=== PATIENT | female | born 1945 | race Caucasian/White ===

== ENCOUNTER → 2022-02-05 | Outpatient (CLI) | payer MEDICARE, OTHER, SELFPAY ==
[2022-02-05 11:02] LABS: Hematocrit 43.1 % (37-47); Hemoglobin 13.8 g/dL (12.0-15.0); Mean Corpuscular Hgb 29.7 pg (27.0-32.0); Mean Corpuscular Volume 92.7 fL (81-99); Platelet Count 159 K/mm3 (150-450); RBC Distribution Width CV 12.7 % (11.6-14.6); RBC Distribution Width SD 42.8 fl (35.1-43.9); Red Blood Count 4.65 M/mm3 (4.2-5.4); White Blood Count 6.1 K/mm3 (4.4-11.0)
[2022-02-05 11:28] LABS: Anion Gap 5 (5-15); BUN 21 mg/dL (7-18); BUN/Creat Ratio 25.9 RATIO (10-20); Calcium,Total 9.4 mg/dL (8.5-10.1); Chloride 108 mmol/L (98-107); Creatinine, Serum 0.81 mg/dL (0.55-1.02); EST Glomerular Filtration Rate 73 mL/min (>60); Est Glom Filt Rate - Afr Amer 88 mL/min (>60); Glucose 86 mg/dL (74-106); Potassium 4.1 mmol/L (3.5-5.1); Sodium Level 144 mmol/L (136-145)
== END | disposition home or self-care (01) ==
PROVIDERS: Referring Provider Physician Assistant; Visit Provider Physician Assistant
DX: Z01.810 Encounter for preprocedural cardiovascular examination (principal)
CPT/HCPCS: 36415; 80048; 85027

== ENCOUNTER → 2023-07-04 | Outpatient (CLI) | payer MEDICARE, OTHER, SELFPAY ==
--- NOTE | 2023-07-04 14:10 | CT_ITS ---
CT RIGHT LOWER EXTREMITY WITH 3-D IMAGING CLINICAL INDICATION: Unilateral primary osteoarthritis, right knee. TECHNIQUE: Axial CT images of the right lower extremity was performed without IV contrast material. Coronal and sagittal reformats were provided. RADIATION DOSAGE (If Supplied By Facility): CTDIvol = ( 18.76 ) mGy, DLP = ( 1128.29 ) mGycm COMPARISON: No relevant prior comparison study available FINDINGS: Bones: There is mild degenerative arthrosis of the right hip joint with tiny marginal osteophyte formation. There is mild pubic symphysis arthrosis. There is severe degenerative arthrosis of the medial femorotibial compartment of the right knee with joint space narrowing, small marginal osteophyte formation, and subchondral sclerosis/cyst formation on both sides of the joint. There is minimal degenerative arthrosis of the patellofemoral compartment of the right knee. There is a tiny posterior calcaneal tuberosity spur. Osseous structures are intact without evidence of fracture or dislocation. No lytic or blastic osseous masses. Soft Tissues: There is a small right knee joint effusion. The deep soft tissue structures are unremarkable. The superficial soft tissues are unremarkable without evidence of edema, hematoma, or foreign body. CT/Extremity Lower without Contra IMPRESSION: Severe degenerative arthrosis of the medial femorotibial compartment of the right knee. Minimal degenerative arthrosis of the patellofemoral compartment of the right knee. Small right knee joint effusion. Electronically Signed: Clemente Boyle MD at 15:08 EDT ,
== END | disposition home or self-care (01) ==
LOC: CT 14:04
PROVIDERS: Referring Provider Student in an Organized Health Care Education/Training Program; Visit Provider Student in an Organized Health Care Education/Training Program
DX: M17.11 Unilateral primary osteoarthritis, right knee (principal)
CPT/HCPCS: 73700

== ENCOUNTER 2023-07-24 05:26 | Day surgery (SDC) | payer MEDICARE, OTHER, SELFPAY ==
[2023-07-04 14:52] LABS: Absolute Lymphocyte Count 1.85 X10^3/uL (0.83-4.51); Basophil# 0.03 X10^3/uL; Basophil% 0.6 % (0-1); Eosinophil# 0.09 X10^3/uL; Eosinophils% 1.7 % (0-5); Hematocrit 40.4 % (37-47); Hemoglobin 13.3 g/dL (12.0-15.0); Lymphocyte # 1.85 X10^3/ul (0.83-4.51); Lymphocyte % 34.6 % (19-41); Mean Corp Hgb Conc 32.9 g/dL (32-36); Mean Corpuscular Hgb 28.7 pg (27.0-32.0); Mean Corpuscular Volume 87.3 fL (81-99); Mean Platelet Vol. 10.3 fl (6.2-12.0); Monocyte# 0.39 X10^3/uL; Monocyte% 7.3 % (0-10); NRBC Flagged by Analyzer 0 % (0-5); Neutrophil # 2.97 X10^3/uL (2.7-7.7); Neutrophil % 55.6 % (47-70); Platelet Count 196 K/mm3 (150-450); RBC Distribution Width CV 12.6 % (11.6-14.6); RBC Distribution Width SD 39.9 fl (35.1-43.9); Red Blood Count 4.63 M/mm3 (4.2-5.4); White Blood Count 5.3 K/mm3 (4.4-11.0)
[2023-07-04 15:43] LABS: Magnesium 2.2 mg/dL (1.6-2.6)
[2023-07-04 15:58] LABS: Albumin, Serum 3.7 g/dL (3.2-5.0); Anion Gap 6 (5-15); BUN 23 mg/dL (7-18); BUN/Creat Ratio 24.7 RATIO (10-20); Calcium,Total 9.1 mg/dL (8.5-10.1); Chloride 100 mmol/L (98-107); Creatinine, Serum 0.93 mg/dL (0.55-1.02); EST Glomerular Filtration Rate 62 mL/min (>60); Est Glom Filt Rate - Afr Amer 75 mL/min (>60); Glucose 116 mg/dL (74-106); Potassium 3.8 mmol/L (3.5-5.1); Sodium Level 135 mmol/L (136-145)
[2023-07-24] VITALS (9 sets, daily range): BP systolic 94–146; BP diastolic 42–92; PULSE 54–65; RESP 16; TEMP 36.2–36.8; O2SAT 66–100; BMI 27.6
[2023-07-24] MEDS: Magnesium 1 GM over 15 mins IV (06:02)
[2023-07-24] MEDS: Lactated Ringers 1,000 ML 999 ML IV ×2 (06:02→10:10)
[2023-07-24] MEDS: Celecoxib 200 MG Capsule 400 MG PO (06:04)
[2023-07-24] MEDS: Gabapentin 600 MG Tablet PO (06:04)
[2023-07-24] MEDS: Acetaminophen 500 MG Tablet 1000 MG PO ×2 (06:04→13:37)
[2023-07-24 07:04] LABS: Bedside Glucose 118 mg/dL (74-106)
--- NOTE | 2023-07-24 08:00 | KNEE_PTH ---
PATIENT: ANNA LIMA LOC: [facility] [place] U#:[id number] AGE/SX: 77/F ROOM: RE07/24/[address]: Dr. Grant Molina DO : 1945 BED: DIS: 07/24/2023 SPEC #: [id number] RECD: 07/24/23 10:11 STATUS: SHAWNEE REMery #: [id number] AASHISH: 07/24/23 08:[address]: Grant Molina DEPT: SURGICAL PATHOLOGY RECD BY: Johanne Hill ENTERED: 07/24/23 10:33 SP TYPE: TOTAL KNEE OTHR DR: Dr. George Aragon DO Tissues: Knee, NOS Procedures: Decalcification bone/plaque Surgery Specimen Level IV HEADER OPERATION: ERAS, total knee replacement robotic arm assist PRE-OP DIAGNOSIS: Grade 4 osteoarthritis right knee TISSUE SUBMITTED: Bone and soft tissue right knee MICROSCOPIC DIAGNOSIS Bone and tissue of right knee, total knee resection: Severe degenerative joint disease. Polarizable crystals consistent with pseudo gout. AM: 07/28/23 MICROSCOPIC DESCRIPTION Slides are reviewed. GROSS DESCRIPTION Received is one container designated bone and soft tissue right knee. The specimen consists of multiple fragments of rubio-yellow bone measuring in aggregate 9.0 x 8.5 x 2.5 cm. Also in the specimen container are multiple fragments of yellow-white soft tissue that consists of a piece of fibrocartilaginous tissue measuring in aggregate 5.5 x 1.0 x 0.8 cm. A number of bony fragments contain articular surfaces consistent with tibial plateau and femoral condyle and displaying prominent osteophyte formation, eburnation and bone erosion. Tub Tender sections are submitted in two cassettes as follows: 1 - soft tissue, 2 - bone after decalcification. / 07/24/23 TC:5 CPT: 80750, 08592
[2023-07-24] MEDS: Cefazolin 2 GM in 0.9% Normal Saline (100mL Bag) 100 ML IV (08:04)
[2023-07-24] MEDS: dexAMETHasone 10 MG/ML Vial IV (08:20)
[2023-07-24] MEDS: TXA 1000mg in NS100 100ml (IVPB at Incision) 660 MG IV (08:20)
[2023-07-24] MEDS: TXA 1000mg in NS100 100ml (IVPB at Closure) 660 MG IV (09:22)
[2023-07-24] MEDS: JPS (Morphine 10mg/ml) OPERA.SITE (09:28)
--- NOTE | 2023-07-24 10:58 | PCM.OPRPT ---
Report of Operation Date of Procedure: 07/24/23 Description of Surgical Findings:: Preoperative diagnosis: Right knee primary osteoarthritis Postoperative diagnosis: Right knee primary osteoarthritis Procedure: Robotic assisted right total knee arthroplasty Surgeon: Grant Molina DO Sales Operations: Faiza Kuhn PA-C Anesthesia: Spinal with sedation, adductor canal block Anesthesiologist: Dr. Kam Complications: None apparent Drains: None Estimated blood loss: 50 cc Urinary output: None recorded IV fluids: 600 cc crystalloid Specimens: Total knee resections Surgical implants: Consuelo triathlon cruciate retaining femoral #2, primary tibial baseplate #3, triathlon X3 tibial bearing insert CS 10 mm Indications: This is a 77-year-old female seen in the outpatient setting diagnosed with right knee osteoarthritis with significant varus deformity. She failed nonoperative management with intra-articular corticosteroid injections, activity modification, bracing, [id number] analgesics. X-rays revealed grade 4 medial compartment changes. I recommended a right total knee arthroplasty. The risk, benefits, alternatives to procedure reviewed with patient at length and he agreed to proceed. Risks included but were not limited to bleeding, infection, loss of life or limb, need for additional surgery, persistent pain, intraoperative or postoperative fracture, instability, loosening of components, wound complications, stiffness, neurovascular injury, DVT or PE. Patient expressed understanding these risks and wished to proceed with surgery. Informed consent was obtained in the outpatient setting. Description of procedure: Patient was identified in the preoperative holding area by name, medical record number, and date of . Informed set was confirmed with the patient. The operative knee was marked with a surgical marker. Spinal anesthetic was administered in the PACU by anesthesia staff. At time of her procedure, patient brought the operative suite and positioned in the supine position with all bony prominences well-padded. We then placed a well-padded pneumatic tourniquet on the right upper thigh. The right upper extremity was brought across patient's chest throughout the procedure. We then prepped and draped the right lower extremity in a normal, sterile orthopedic fashion. We performed a timeout with all parties in attendance in agreement with the side, site, operation be performed. No concerns were voiced and would like to proceed with surgery. 2 g Ancef was administered prior to the incision by anesthesia staff as well as 1 g IV TXA. First exsanguinated the left lower extremity with a Esmarch bandage. Tourniquet was inflated to 280 mmHg, which remained up for 55 minutes. Esmarch was removed. I planned a standard midline approach to the l right eft knee approximately 15 cm in length. Skin was sharply incised with a 10 blade scalpel developing full-thickness layers down to the retinaculum. Layers were developed identifying the VMO. I then planned a standard medial parapatellar arthrotomy performed in flexion. The anterior horn of the medial meniscus was released. Hoffa's fat pad was then released. I then everted the patella in extension and brought the knee into 90 degrees of flexion. The anterior horn of the lateral meniscus was then released. The ACL was split in its mid substance with a 10 blade. We then brought the knee back into extension. The patella was examined and demonstrated grade I chondromalacia. I elected to leave the patella [place] without resurfacing. I then placed pins in the metaphyseal distal femur medial to lateral for the Romel arrays. In similar fashion, I made a 2 cm incision approximately a handsbreadth distal to the tibial tubercle along the medial aspect of the tibia, drilling 2 bicortical pins for the tibial array. The knee was brought into flexion. The patella was subluxed laterally but not everted. Medial lateral retractors were placed. We then utilized the Grapeshot software to confirm our planned surgical procedure and oriented with the patient's osseous anatomy. All checks with the Grapeshot system were confirmed. Patient had a significant fixed varus deformity after performing stress examination utilizing the Grapeshot software. We elected to place the tibial baseplate in 2 degrees of varus to allow for appropriate balancing. Sawblade was then brought in. I first started with the tibial cut, ensuring protection of the MCL and patellar tendon. A tibial wafer was then excised. I then proceeded to make the posterior femoral, anterior, anterior chamfer cuts with the same blade. Ligaments were protected with Intermedics retractors. Sawblade was then exchanged to perform the distal femoral and posterior chamfer cuts. The robot was then removed from the surgical field. Remaining loose bone and meniscus was excised carefully. Posterior osteophytes were removed from the distal femur with a curved osteotome and rongeur. Trial components were then placed. Balance was excellent in both extension and 90 degrees flexion. No mid flexion instability was apparent. Tracking was excellent. We then marked for tibial baseplate. Distal femoral pegs were drilled. Tibial keel was punched. Trials were removed. Periarticular block was administered. The wound was copiously irrigated with normal saline solution. Simplex cement was then mixed on the back table. Components were then cemented in place with excess cement being removed. Cement was allowed to cure with the components in full extension utilizing a 10 mm trial polyethylene component. While the cement was curing, Betadine solution was irrigated into the wound and the wound edges. After cement had cured fully, trial polyethylene was removed. Tourniquet was deflated. Hemostasis was excellent. An additional 1 g TXA was administered IV. I selected a size 10 mm polyethylene which was placed and impacted per instant print operator recommendations. Final components appeared very well balanced with excellent range of motion. There is no significant remaining flexion contracture. The wound was copiously irrigated with normal saline solution. Capsule was closed watertight with #1 strata fix barbed suture. Deeper bursal layer was reapproximated with 0 Vicryl suture. Dermis was reapproximated buried interrupted 2-0 Vicryl suture. Skin was finally reapproximated katelynn. Patient tolerated the procedure well without apparent complication. She was safely awakened in the operative suite, transferred to his hospital bed and subsequently to PACU in stable condition. Need for skilled ice cream freezer assistant: Faiza Kuhn PA-C was critical to the outcome of the case. During the course of the procedure the physician ice cream freezer assistant played a vital role. Her intimate knowledge of my steps in the procedure aided in safe and expedient completion of the procedure. The PA played a vital role in positioning particularly in obtaining the appropriate positioning. The PA was also vital in the retraction of soft tissues during the exposure and projecting vital structures. The PA was also vital and protecting soft tissues during times of bony cuts. She also played a vital role in closure with my direct supervision. The PA was also important during reduction and dislocation of the joint and trials intraoperatively. Post Operative Plan: Plan for outpatient discharge today after meeting same-day surgery criteria. Weightbearing: Range of motion and weightbearing as tolerated right lower extremity. Antibiotics: Ancef 2 g prior to incision, 1 dose Ancef prior to discharge. DVT Prophylaxis: Multimodal with aspirin, SCDs, YOSELIN hose and early mobilization Hood: None Dressing: Maintain silver dressing x5 days X-Rays: 2-week x-rays in the office. Follow-up: 2 weeks in my office for staple removal
[2023-07-24] MEDS: Lactated Ringers 1,000 ML 125 ML IV (11:06)
[2023-07-24] MEDS: Cefazolin 1 GM/50 ML BAG IV (14:00)
== END 2023-07-24 14:35 | disposition home or self-care (01) ==
LOC: SDC 05:26 → AC 05:27
PROVIDERS: Anesthesiology; Referring Provider Student in an Organized Health Care Education/Training Program; Visit Provider Student in an Organized Health Care Education/Training Program
PROC: 0SRC0JZ Replacement of Right Knee Joint with Synthetic Substitute, Open Approach (ICD-10-PCS; CPT 27447; principal; 2023-07-24 07:30)
DX: M17.11 Unilateral primary osteoarthritis, right knee (principal); M21.161 Varus deformity, not elsewhere classified, right knee; I10 Essential (primary) hypertension; K21.9 Gastro-esophageal reflux disease without esophagitis; Z79.899 Other long term (current) drug therapy; Z79.82 Long term (current) use of aspirin
CPT/HCPCS: 27447; 01402; 64447; 36415; 80048; 82040; 82962; 83735; 85025; 87081; 88305; 88311; 97161; C1776; J7120; J2405; J3475

== ENCOUNTER → 2023-10-16 | Outpatient (CLI) | payer MEDICARE, OTHER, SELFPAY ==
--- NOTE | 2023-10-16 08:37 | CT_ITS ---
CT LEFT LOWER EXTREMITY WITH 3-D IMAGING CLINICAL INDICATION: OA TECHNIQUE: Axial CT images of the left lower extremity (including left hip, left knee, and left ankle) was performed without IV contrast material. Coronal and sagittal reformats were provided. The protocol utilizes one or more of the following dose reduction techniques: automated exposure control, adjustment of mA and/or kV according to patient size, and/or use of iterative reconstruction technique. RADIATION DOSAGE (If Supplied By Facility): CTDIvol = ( 19.68 ) mGy, DLP = ( 1130.06 ) mGycm COMPARISON: No relevant prior comparison study available. FINDINGS: Bones: There is mild degenerative arthrosis of the left hip joint. There is mild pubic symphysis arthrosis. There is moderate degenerative arthrosis of the medial femorotibial compartment of the left knee, with joint space narrowing, marginal osteophyte formation, and subchondral sclerosis/cyst formation. There is mild degenerative arthrosis of the patellofemoral and lateral femorotibial compartments of the left knee with marginal osteophyte formation. There is a 6 mm ossified loose body in the intercondylar notch. Normal left ankle. Osseous structures are intact without evidence of fracture or dislocation. No lytic or blastic osseous masses. Soft Tissues: There is a large septated popliteal cyst, spanning a craniocaudal distance of approximately 9.9 cm. There is a small left knee joint effusion. The deep soft tissue structures are unremarkable. The superficial soft tissues are unremarkable without evidence of edema, hematoma, or foreign body. CT/Extremity Lower without Contra IMPRESSION: Tricompartment degenerative arthrosis of the left knee, most pronounced in the medial femorotibial compartment. 6 mm ossified loose body in the intercondylar notch. 9.9 cm septated popliteal cyst. Small left knee joint effusion. Electronically Signed: Clemente Boyle MD at 9:24 EDT ,
== END | disposition home or self-care (01) ==
PROVIDERS: Referring Provider Student in an Organized Health Care Education/Training Program; Visit Provider Student in an Organized Health Care Education/Training Program
DX: M17.12 Unilateral primary osteoarthritis, left knee (principal)
CPT/HCPCS: 73700

== ENCOUNTER 2023-11-06 05:23 | Day surgery (SDC) | payer MEDICARE, OTHER, SELFPAY ==
[2023-10-16 09:44] LABS: Absolute Lymphocyte Count 2.05 X10^3/uL (0.83-4.51); Absolute Neutrophil Count 2.6 X10^3/uL (2.0-7.7); Basophil# 0.03 X10^3/uL; Basophil% 0.6 % (0-1); Eosinophil# 0.11 X10^3/uL; Eosinophils% 2.1 % (0-5); Hematocrit 40.8 % (37-47); Hemoglobin 13.2 g/dL (12.0-15.0); Lymphocyte # 2.05 X10^3/ul (0.83-4.51); Lymphocyte % 39.7 % (19-41); Mean Corp Hgb Conc 32.4 g/dL (32-36); Mean Corpuscular Hgb 29.2 pg (27.0-32.0); Mean Corpuscular Volume 90.3 fL (81-99); Monocyte# 0.33 X10^3/uL; Monocyte% 6.4 % (0-10); NRBC Flagged by Analyzer 0 % (0-5); Neutrophil # 2.64 X10^3/uL (2.7-7.7); Platelet Count 179 K/mm3 (150-450); RBC Distribution Width CV 12.5 % (11.6-14.6); RBC Distribution Width SD 41.1 fl (35.1-43.9); Red Blood Count 4.52 M/mm3 (4.2-5.4); White Blood Count 5.2 K/mm3 (4.4-11.0)
[2023-10-16 10:04] LABS: Magnesium 2.5 mg/dL (1.6-2.6)
[2023-10-16 10:10] LABS: Albumin, Serum 3.5 g/dL (3.2-5.0); Anion Gap 4 (5-15); BUN 17 mg/dL (7-18); Calcium,Total 9.1 mg/dL (8.5-10.1); Chloride 109 mmol/L (98-107); EST Glomerular Filtration Rate 65 mL/min (>60); Est Glom Filt Rate - Afr Amer 78 mL/min (>60); Glucose 91 mg/dL (74-106); Potassium 4.1 mmol/L (3.5-5.1); Sodium Level 141 mmol/L (136-145)
[2023-11-06] VITALS (13 sets, daily range): BP systolic 108–151; BP diastolic 67–84; PULSE 60–69; RESP 14–16; TEMP 36.2–36.6; O2SAT 94–100; BMI 26.6
[2023-11-06] MEDS: Celecoxib 200 MG Capsule 400 MG PO (05:59)
[2023-11-06] MEDS: Acetaminophen 500 MG Tablet 1000 MG PO ×2 (06:00→14:24)
[2023-11-06] MEDS: Magnesium 1 GM over 15 mins IV (06:00)
[2023-11-06] MEDS: Gabapentin 600 MG Tablet PO (06:00)
[2023-11-06] MEDS: Lactated Ringers 1,000 ML 999 ML IV ×2 (06:00→09:34)
[2023-11-06 06:37] LABS: Bedside Glucose 60 mg/dL (74-106)
--- NOTE | 2023-11-06 07:09 | PCM.PRE.AN2 ---
ASA Classification* ASA Classification ASA Classification: 2 Assessment & Plan Anesthesia* Anesthesia Assessment Anesthesia Assessment: Discussed sedation and/or anesthesia options, risks, benefits, and alternatives with patient/parents/legal guardian/POA. Questions invited. The patient/parents/legal guardian/POA seems to understand and agrees to proceed with anesthesia plan. Reviewed the physical assessment, medical history, allergy history and patient home medications list prior to surgery/procedure/anesthetic and documented any changes. Performed airway and anesthesia risk assessments. Anesthesia Type Anesthesia Type: MAC, Spinal (see written pre anesthesia record for full assessment) and Block (add canal) Anesthesia Focused Assessment* Temperature: 97.8 F Pulse Rate: 63 Blood Pressure: 148/84 Respiratory Rate: 16 Pulse Ox: 98 Airway Assessment Mouth opens: >3 cm Mallampati Score: III Focused Labs Anesthesia Preop lab: CBC WBC 5.2 K/mm3 (4.4-11.0) 10/16/23 08:59 RBC 4.52 M/mm3 (4.2-5.4) 10/16/23 08:59 Hgb 13.2 g/dL (12.0-15.0) 10/16/23 08:59 Hct 40.8 % (37-47) 10/16/23 08:59 Plt Count 179 K/mm3 (150-450) 10/16/23 08:59 CHEMISTRY Potassium 4.1 mmol/L (3.5-5.1) 10/16/23 08:59 Sodium 141 mmol/L (136-145) 10/16/23 08:59 Magnesium 2.5 mg/dL (1.6-2.6) 10/16/23 08:59 BUN 17 mg/dL (7-18) 10/16/23 08:59 Creatinine 0.90 mg/dL (0.55-1.02) 10/16/23 08:59 Glucose 91 mg/dL (74-106) 10/16/23 08:59 POC Glucose 60 mg/dL (74-106) L 11/06/23 05:58 COAG Pre-Assessment Diagnosis/Proposed Procedure Planned Operative Procedure(s): ROBOTIC ASSISTED LEFT TOTAL KNEE ARTHROPLASTY Anesthesia History Anesthesia History - clinical specialist medical device: Anesthesia History - clinical specialist medical device Hx Hospitalization No 10/13/23 09:26 Any Problems With Anesthesia No 10/13/23 09:26 Cholinesterase deficiency No 10/13/23 09:26 You/Your Family Experience No 10/13/23 09:26 fever (hyperthermia) with Relationship Recent Exposure to Contagious No 11/06/23 05:54 Disease Does patient have nerve No 10/13/23 09:26 stimulator Patient instructed to have device shut off --Does patient have Pacemaker No 11/06/23 05:54 or ICD? When Was Last Pacemaker Check QUESTION #4 FULL TEXT: You/Your Family Experience fever (hyperthermia) with Anesthesia Last Oral Intake Last Oral intake: Last Oral Intake NPO since 03:30 11/06/23 05:54 Meds taken in AM with sips of Yes 11/06/23 05:54 water? Meds patient instructed to take am of surgery PONV PONV - clinical specialist medical device: PONV - clinical specialist medical device Female Yes 10/13/23 09:26 HX of Motion Sickness Yes 10/13/23 09:26 HX of N/V After Surgery No 10/13/23 09:26 Non-Smoker Yes 10/13/23 09:26 Duration of Surgery greater Yes 10/13/23 09:26 than 60 minutes Number of Risk Factors 4 10/13/23 09:26 PONV Score Severe Risk 10/13/23 09:26 Height & Weight Height & Weight: Anesthesia: Height & Weight Height 5 ft 11/06/23 05:54 Weight: 62 kg 11/06/23 05:54 Body Mass Index (BMI) 26.6 11/06/23 05:54 Respiratory Assessment Respiratory Assessment - clinical specialist medical device: Respiratory Tract Infection Hx - clinical specialist medical device Hx Respiratory Tract Infection No 10/13/23 09:26 STOP Sleep Apnea STOP Sleep Apnea - clinical specialist medical device: STOP Sleep Apnea - clinical specialist medical device Hx Hypertension Yes: PER PT, CONTROLLED ON 10/13/23 09:26 MEDS Hx Sleep Apnea No 10/13/23 09:26 CPAP BIPAP Do you snore loudly (louder No 10/13/23 09:26 than talking or can be heard Do you often feel tired/ Yes 10/13/23 09:26 fatigued/ sleepy during daytime? Has anyone observed you stop No 10/13/23 09:26 breathing during sleep? STOP Results Positive 10/13/23 09:26 QUESTION #5 FULL TEXT : Do you snore loudly (louder than talking or can be heard through closed doors)? Tobacco Use History Tobacco Use History - clinical specialist medical device: Tobacco Use History - clinical specialist medical device Tobacco Use Smoking Status Never smoker 10/13/23 09:26 Hx Tobacco Use No 10/13/23 09:26 Years Smoking Packs Smoked per Day Smoking Cessation Date was within the last 15 years Hx Smoking Cessation Date Hx Smoking Cessation Counseling Hematologic Medial History Hematologic Hx - clinical specialist medical device: Hematologic Medical Hx - front services agent Hx of Blood Transfusion No 10/13/23 09:26 Hx of Transfusion in last 3 No 10/13/23 09:26 Months Date of Last Transfusion (if within last 3 months) Ever experience any problems No 10/13/23 09:26 with transfusion(s)? Specify any problems Hx of Preganancy in last 3 No 10/13/23 09:26 Months Nurse Filling Out Transfusion DSCHRIBER 10/13/23 09:26 & Questions: Date: 10/13/23 10/13/23 09:26 Time: 09:10/13/23 09:26 Patient unable to answer at this time (ie. confused, unrespo /Reproduction History /Reproductive History - clinical specialist medical device: /Reproductive Hx- clinical specialist medical device Hx Now No 10/13/23 09:26 Gestational Age (in weeks): EDC: Hx Hx Para Hx Section SAB No 10/13/23 09:26 Active Medications Active Medications: Current Medications Generic Name Dose Route Start Last Admin Trade Name Freq PRN Reason Stop Dose Admin Acetaminophen 1,000 mg 11/06/23 07:30 11/06/23 06:00 Acetaminophen 500 Mg Tablet PO 11/06/23 07:31 1,000 mg X1 ONE Administration Celecoxib 400 mg 11/06/23 07:30 11/06/23 05:59 Celecoxib 200 Mg Capsule PO 11/06/23 07:31 400 mg X1 ONE Administration Sodium Chloride 77.4 ml/ 0 ml 11/06/23 07:30 Ropivacaine 200 mg/ OPERA.SITE 11/06/23 07:31 Epinephrine HCl 0.6 mg/ X1 ONE Ketorolac Tromethamine 30 mg/ Morphine Sulfate 5 mg Dexamethasone Sodium Phosphate 10 mg 11/06/23 07:30 Dexamethasone 10 Mg/Ml Vial IV 11/06/23 07:31 X1 ONE Gabapentin 600 mg 11/06/23 07:30 11/06/23 06:00 Gabapentin 600 Mg Tablet PO 11/06/23 07:31 600 mg X1 ONE Administration Lactated Ringer's 1,000 mls @ 999 mls/hr 11/06/23 07:30 11/06/23 06:00 IV 11/06/23 08:30 999 mls/hr .Q1H1M MIRIAN Administration Cefazolin Sodium 2 gm/ Sodium 110 mls @ 150 mls/hr 11/06/23 07:30 Chloride IV 11/06/23 08:13 PREOP ONE Tranexamic Acid 1,000 mg/ 110 mls @ 660 mls/hr 11/06/23 07:30 Sodium Chloride IV 11/06/23 07:39 X1 ONE Tranexamic Acid 1,000 mg/ 110 mls @ 660 mls/hr 11/06/23 08:30 Sodium Chloride IV 11/06/23 08:39 X1 ONE Lactated Ringer's 1,000 mls @ 999 mls/hr 11/06/23 08:30 IV 11/06/23 09:30 .Q1H1M MIRIAN Lactated Ringer's 1,000 mls @ 125 mls/hr 11/06/23 09:30 IV 11/06/23 17:29 .Q8H MIRIAN Magnesium Sulfate 1 gm/ 102 mls @ 408 mls/hr 11/06/23 07:30 11/06/23 06:00 Dextrose IV 11/06/23 07:44 408 mls/hr X1 ONE Administration Insulin Human Lispro 1 - 6 unit 11/06/23 07:30 Insulin Lispro 100 Unit/Ml Insuln.Pen SC 11/06/23 13:30 Q4H PRN PRN BG>/= 180, SEE PROTOCOL Protocol PFSH Medical History Cardiology follow-up encounter Wears glasses Injury of head and neck TIA (transient ischemic attack) Osteoarthritis Gastric reflux Non-smoker Shortness of breath on exertion PONV (postoperative nausea and vomiting) Leg cramps History of edema Tachycardia History of echocardiogram History of stress test Hypertension Home Medications ?Medication ?Instructions ?Recorded ?Last Taken ?Type CBD CREAM 1 unit transdermal DAILY 06/30/23 Unknown History acetaminophen 500 mg capsule 1,000 mg PO Q6H PRN pain 06/30/23 Unknown History aspirin 81 mg capsule 81 mg PO MOWEFR 06/30/23 10/31/23 History atenolol 50 mg tablet 50 mg PO QHS htn 06/30/23 07/23/23 History calcium carbonate 500 mg-vitamin 1 tab PO BID 06/30/23 Unknown History D3 3.125 mcg (125 unit) tablet cholecalciferol (vitamin D3) 25 25 mcg PO DAILY 06/30/23 Unknown History mcg (1,000 unit) tablet (Vitamin D3) ibuprofen 400 mg tablet (IBU) 600 mg PO DAILY PRN PRN pain 06/30/23 Unknown History latanoprost 0.005 % eye drops 1 drp ophthalmic (eye) QHS 06/30/23 Unknown History magnesium 250 mg tablet 250 mg PO DAILY 06/30/23 Unknown History omeprazole 20 mg capsule,delayed 20 mg PO DAILY 06/30/23 11/06/23 History release irbesartan 75 mg tablet 75 mg PO DAILY 10/13/23 Unknown History Allergy/AdvReac Type Severity Reaction Status Date / Time meloxicam AdvReac Intermediate Nausea/Vom/ Verified 11/06/23 05:52 Diarrhea oxycodone AdvReac Intermediate Nausea/Vom/ Verified 11/06/23 05:52 Diarrhea tramadol AdvReac Intermediate Nausea/Vom/ Verified 11/06/23 05:52 Diarrhea Surgical History Hx of total knee arthroplasty History of carpal tunnel surgery of right wrist History of bilateral cataract extraction History of total abdominal hysterectomy History of lumpectomy of right breast History of femoral hernia repair History of tubal ligation Social History Smoking Status: Never smoker Review of Systems (Anesthesia) ROS Narrative System reviewed and no additional complaints, except as documented.
[2023-11-06 07:18] LABS: Bedside Glucose 82 mg/dL (74-106)
--- NOTE | 2023-11-06 07:30 | KNEE_PTH ---
PATIENT: ANNA LIMA LOC: [facility] [place] U#:[id number] AGE/SX: 78/F ROOM: RE11/06/[address]: Dr. Grant Molina DO : 1945 BED: DIS: 11/06/2023 SPEC #: [id number] RECD: 11/06/23 10:27 STATUS: SHAWNEE REQ #: [id number] AASHISH: 11/06/23 07:[address]: Grant Molina DEPT: SURGICAL PATHOLOGY RECD BY: Johanne Hill ENTERED: 11/06/23 11:19 SP TYPE: TOTAL KNEE OTHR DR: Dr. George Aragon DO Tissues: Knee, NOS Procedures: Decalcification bone/plaque Surgery Specimen Level IV HEADER OPERATION: Total knee replacement with robotic arm assist PRE-OP DIAGNOSIS: Severe IV osteoarthritis left knee TISSUE SUBMITTED: Bone and soft tissue left knee MICROSCOPIC DIAGNOSIS Bone and tissue of left knee, total knee resection: Severe degenerative joint disease. AM: 11/12/2023 MICROSCOPIC DESCRIPTION Slides are reviewed. GROSS DESCRIPTION Received is one container designated bone and soft tissue left knee. The specimen consists of multiple fragments of rubio-yellow bone measuring in aggregate 10.0 x 8.0 x 3.0 cm. No soft tissue is identified. A number of bony fragments contain articular surfaces consistent with tibial plateau and femoral condyle and displaying prominent osteophyte formation, eburnation and bone erosion. Furniture Lumber Production Worker sections are submitted in one cassette after decalcification. / 11/06/2023 TC:5 CPT: 06792, 06051
[2023-11-06] MEDS: Cefazolin 2 GM in 0.9% Normal Saline (100mL Bag) 100 ML IV (07:37)
[2023-11-06] MEDS: TXA 1000mg in NS100 100ml (IVPB at Incision) 660 MG IV (07:44)
[2023-11-06] MEDS: dexAMETHasone 10 MG/ML Vial IV (07:57)
[2023-11-06] MEDS: JPS (Morphine 10mg/ml) OPERA.SITE (08:50)
[2023-11-06] MEDS: TXA 1000mg in NS100 100ml (IVPB at Closure) 660 MG IV (08:53)
--- NOTE | 2023-11-06 09:59 | PCM.OPRPT ---
Report of Operation Date of Procedure: 11/06/23 Description of Surgical Findings:: Preoperative diagnosis: Left knee primary osteoarthritis Postoperative diagnosis: Left knee primary osteoarthritis Procedure: Cemented left total knee arthroplasty Surgeon: Grant Molina DO Gum Rolling Machine Operator: Faiza Kuhn PA-C Anesthesia: Spinal with sedation, adductor canal block Anesthesiologist: Dr. Fritz Complications: None apparent Drains: None Estimated blood loss: 50 cc Urinary output: None recorded IV fluids: 1000 cc crystalloid Specimens: Total knee resections Surgical implants: Consuelo triathlon triathlon cruciate retaining femoral #3, primary tibial baseplate #3, triathlon X3 tibial bearing insert CS 11 mm Indications: This is a 78-year-old female seen in the outpatient setting diagnosed with left knee osteoarthritis with significant varus deformity. She failed nonoperative management with intra-articular corticosteroid injections, activity modification, bracing, [id number] analgesics. X-rays revealed grade 4 medial compartment changes. She had minimal patellofemoral arthritis. I recommended a left total knee arthroplasty with robotic arm assistance. The risks, benefits, alternatives to procedure reviewed with patient at length and he agreed to proceed. Risks included but were not limited to bleeding, infection, loss of life or limb, need for additional surgery, persistent pain, intraoperative or postoperative fracture, instability, loosening of components, wound complications, stiffness, neurovascular injury, DVT or PE. Patient expressed understanding these risks and wished to proceed with surgery. Informed consent was obtained in the outpatient setting. Description of procedure: Patient was identified in the preoperative holding area by name, medical record number, and date of . Informed consent was confirmed with the patient. The operative knee was marked with a surgical marker. At time of her procedure, patient brought to the operative suite and positioned supine a standard operating table. Anesthesia then administered a spinal anesthetic. She was then repositioned in the supine position with all bony prominences well-padded. We then placed a well-padded pneumatic tourniquet on the left upper thigh. The left upper extremity was brought across patient's chest throughout the procedure. We then prepped and draped the left lower extremity in a normal, sterile orthopedic fashion. We performed a timeout with all parties in attendance in agreement with the side, site, operation be performed. No concerns were voiced and would like to proceed with surgery. 2 g Ancef was administered prior to the incision by anesthesia staff as well as 1 g IV TXA. First exsanguinated the left lower extremity with a Esmarch bandage. Tourniquet was inflated to 250 mmHg. Esmarch was removed. I planned a standard midline approach to the left knee approximately 12 cm in length. Skin was sharply incised with a 10 blade scalpel developing full-thickness layers down to the retinaculum. Layers were developed identifying the VMO. I then planned a standard medial parapatellar arthrotomy performed in flexion. The anterior horn of the medial meniscus was released. Hoffa's fat pad was then released. I then everted the patella in extension and brought the knee into 90 degrees of flexion. The anterior horn of the lateral meniscus was then released. The ACL was split in its mid substance with a 10 blade. We then brought the knee back into extension. The patella was everted. Fat pad was excised. There was grade 1?2 chondromalacia on the patella and appeared appropriate to remain negative. And I then placed pins in the metaphyseal distal femur medial to lateral for the Romel arrays. In similar fashion, I made a 2 cm incision approximately a handsbreadth distal to the tibial tubercle along the medial aspect of the tibia, drilling 2 bicortical pins for the tibial array. The knee was brought into flexion. The patella was subluxed laterally but not everted. Medial / lateral retractors were placed. We then utilized the [employer] software to confirm our planned surgical procedure and oriented with the patient's osseous anatomy. All checks with the [employer] system were confirmed. Patient had a significant fixed varus deformity after performing stress examination utilizing the [employer] software. We elected to place the tibial baseplate in approximately 2 degrees of varus to allow for appropriate balancing. Sawblade was then brought in. I first started with the tibial cut, ensuring protection of the MCL and patellar tendon. A tibial wafer was then excised. I then proceeded to make the posterior femoral, anterior, anterior chamfer cuts with the same blade. Ligaments were protected with [employer] retractors. Sawblade was then exchanged to perform the distal femoral and posterior chamfer cuts. The robot was then removed from the surgical field. Remaining loose bone and meniscus was excised carefully. Posterior osteophytes were removed from the distal femur with a curved osteotome and rongeur. Trial components were then placed with a 10 mm polyethylene. Balance was excellent in both extension and 90 degrees flexion. No mid flexion instability was apparent. Tracking was excellent. We then marked for tibial baseplate. Distal femoral pegs were drilled. Tibial keel was punched. Trials were removed. Periarticular block was administered. The wound was copiously irrigated with normal saline solution. Simplex cement was then mixed on the back table. Components were then cemented in place with excess cement being removed. Cement was allowed to cure with the components in full extension utilizing a with a 10 mm polyethylene insert 10 mm trial polyethylene component. While the cement was curing, dilute Betadine soak was performed for 3 minutes in the wound and the wound edges. After cement had cured fully, trial polyethylene was removed. Tourniquet was deflated. Hemostasis was excellent. An additional 1 g TXA was administered IV. I selected a size 10 mm polyethylene which was placed and impacted per agricultural agent recommendations. Final components appeared very well balanced with excellent range of motion. The wound was copiously irrigated with normal saline solution. Capsule was closed watertight with #1 strata fix barbed suture. Deeper bursal layer was reapproximated with 0 Vicryl suture. Dermis was reapproximated buried interrupted 2-0 Vicryl suture. Skin was finally reapproximated katelynn. Patient tolerated the procedure well without apparent complication. She was safely awakened in the operative suite, transferred to his hospital bed and subsequently to PACU in stable condition. Need for skilled assistant manager of operations: Faiza Kuhn PA-C was critical to the outcome of the case. During the course of the procedure the physician assistant manager of operations played a vital role. Her intimate knowledge of my steps in the procedure aided in safe and expedient completion of the procedure. The PA played a vital role in positioning particularly in obtaining the appropriate positioning. The PA was also vital in the retraction of soft tissues during the exposure and projecting vital structures. The PA was also vital and protecting soft tissues during times of bony cuts. She also played a vital role in closure with my direct supervision. The PA was also important during reduction and dislocation of the joint and trials intraoperatively. Post Operative Plan: Plan for same-day discharge. Will mobilize with therapy once her spinal anesthetic resolves. Plan for outpatient physical therapy to start in 4 days. Weightbearing: Range of motion and weightbearing as tolerated left lower extremity. Antibiotics: Additional 1 g Ancef IV prior to discharge DVT Prophylaxis: Aspirin 81 mg twice daily for DVT prophylaxis starting postoperative day #1 Hood: None Dressing: Maintain silver dressing x5 days X-Rays: 2-week x-rays in the office. Follow-up: 2 weeks for staple removal
--- NOTE | 2023-11-06 10:04 | PCM.POST.ANE ---
Anesthesia: Postop Eval I Current Vital Signs Temperature: 97.3 F Pulse Rate: 67 Blood Pressure: 108/68 Respiratory Rate: 14 Pulse Ox: 94 Oxygen Delivery Method: Room Air Assessment Airway patent: Yes Spontaneous unlabored respirations: Yes Mental status: Awake and Calm nausea: No Vomiting: No Anesthesia Complication: No Fluid Hydration Crystalloid volume administer (ml): 1,200 Total IV fluid infused: 1,200 Progress Note Anesthesia document: Postop Eval 1 completed: Yes
[2023-11-06] MEDS: Lactated Ringers 1,000 ML 125 ML IV (10:09)
--- NOTE | 2023-11-06 15:07 | SUR.PHASEII ---
1400 pt walked to br
== END 2023-11-06 15:16 | disposition home or self-care (01) ==
LOC: SDC 05:24 → AC 05:24
PROVIDERS: Anesthesiology; Referring Provider Student in an Organized Health Care Education/Training Program; Visit Provider Student in an Organized Health Care Education/Training Program
PROC: 0SRD0JZ Replacement of Left Knee Joint with Synthetic Substitute, Open Approach (ICD-10-PCS; CPT 27447; principal; 2023-11-06 07:00)
DX: M17.12 Unilateral primary osteoarthritis, left knee (principal); K21.9 Gastro-esophageal reflux disease without esophagitis; I10 Essential (primary) hypertension; Z79.899 Other long term (current) drug therapy; Z79.82 Long term (current) use of aspirin
CPT/HCPCS: 27447; 64447; 01402; 36415; 80048; 82040; 82962; 83735; 85025; 87081; 88305; 88311; 97162; C1776; J7120; J2405; J3475